=== PATIENT | female | born 1960 | race Caucasian/White ===

== ENCOUNTER 2021-04-24 11:27 | Outpatient (CLI) | payer MEDICAID ==
[~2021-04-24 11:27] MED LIST: ALBU8HFA PO; AMPH12.52 PO; ESTR1VAG VG; ESZO3TAB66 PO; LACT1CAP73 PO; LEVO50TA67 PO; LURA20TA PO; TRAZ-256 PO
== END 2021-04-24 23:59 | disposition home or self-care (01) ==
LOC: RAD 11:27
PROVIDERS: ATTEND Family Medicine
DX: R56.9 Unspecified convulsions (principal); R55 Syncope and collapse; Z86.69 Personal history of other diseases of the nervous system and sense organs
CPT/HCPCS: 95816

== ENCOUNTER 2024-10-10 14:07 | Day surgery (SDC) | payer MEDICAID ==
[2024-10-10] VITALS (10 sets, daily range): BP systolic 111–150; BP diastolic 72–94; PULSE 62–89; RESP 16; O2SAT 92–97
[~2024-10-10] VITALS: Ht 149.9 cm; Wt 51.8 kg
[~2024-10-10 14:07] MED LIST changes: -ESTR1VAG VG; +ESTR1VAG10 VG; -LURA20TA PO; +LURA20TA8 PO
[2024-10-10] MEDS ORDERED: nitroGLYCERIN 0.4mg SUBLingual tab SL PRN ×2 (14:35→16:50)
[2024-10-10] MEDS ORDERED: diphenhydrAMINE 25mg capsule PO PRN (14:35)
[2024-10-10] MEDS ORDERED: LORazepam 0.5 MG tablet PO PRN (14:35)
[2024-10-10] MEDS ORDERED: fentaNYL/PF 50MCG/1 ML 2ML syringe ONE (14:50)
[2024-10-10] MEDS ORDERED: midazolam 1 mg/ML 2ml injection ONE ×2 (14:50→15:49)
[2024-10-10] MEDS ORDERED: iohexol 350MG/ML 100ml bottle IV ONE (14:50)
[2024-10-10] MEDS ORDERED: LIDOcaine 1% 30ml preserv. free vial ONE (14:50)
[2024-10-10] MEDS ORDERED: BUDE10.7 INH (15:17)
[2024-10-10] MEDS ORDERED: OMEP20CA16 PO (15:17)
[2024-10-10] MEDS ORDERED: ESZO3TAB44 PO (15:17)
[2024-10-10] MEDS ORDERED: AMLO-507 (15:17)
[2024-10-10] MEDS ORDERED: LINA290C PO (15:17)
[2024-10-10] MEDS ORDERED: LIDO700A47 TOP (15:17)
[2024-10-10] MEDS ORDERED: [UNRECOGNIZED DRUG - OTHER] TOP (15:17)
[2024-10-10] MEDS ORDERED: NORT25CA PO (15:17)
[2024-10-10] MEDS ORDERED: FLUO10TA34 NAS (15:17)
[2024-10-10] MEDS ORDERED: METO10TA3 PO (15:17)
[2024-10-10] MEDS ORDERED: TOBR5DRO7 EACHEYE (15:17)
[2024-10-10 15:19] LABS: BASOPHILS % (AUTO) 0.8 % (0-1); EOSINOPHILS % (AUTO) 0.6 % (0-6); HEMATOCRIT 38.4 % (35.0-45.0); HEMOGLOBIN 12.7 g/dl (12.0-16.0); LYMPHOCYTES # (AUTO) 1.2 X10'3 (1.1-4.8); LYMPHOCYTES % (AUTO) 23.3 % (21-51); MEAN CORPUSCULAR HEMOGLOBIN 33.3 PG (27.0-31.0); MEAN CORPUSCULAR HGB CONC 33.2 g/dL (33.0-36.5); MEAN CORPUSCULAR VOLUME 100.5 FL (78-98); MEAN PLATELET VOLUME 8.5 FL (7.4-10.4); MONOCYTES # (AUTO) 0.4 X10'3 (0-0.9); MONOCYTES % (AUTO) 8.8 % (2-12); NEUTROPHILS # (AUTO) 3.3 X10'3 (1.8-7.7); NEUTROPHILS % (AUTO) 66.5 % (42-75); PLATELET COUNT 241 X10'3 (140-440); RED BLOOD COUNT 3.82 X10'6 (4.20-5.60); RED CELL DISTRIBUTION WIDTH 13.4 % (11.5-14.5)
[2024-10-10] MEDS ORDERED: POLY17PO20 PO (15:20)
[2024-10-10] MEDS ORDERED: TRAM50TA2 PO (15:20)
[2024-10-10 15:31] LABS: APTT 24 SECONDS (22-32); PROTHROMBIN TIME 10.1 SECONDS (9.0-12.0)
[2024-10-10 15:49] LABS: ALBUMIN 3.3 G/DL (3.4-5.0); ANION GAP 11 (8-16); BLOOD UREA NITROGEN 14 MG/DL (7-18); BUN/CREATININE RATIO 21.2 (10.0-20.0); CALCIUM 8.9 MG/DL (8.5-10.1); CHLORIDE 104 MMOL/L (99-107); CREATININE 0.66 MG/DL (0.40-0.90); GLUCOSE 90 MG/DL (70-104); POTASSIUM 3.8 MMOL/L (3.5-5.1); SODIUM 136 MMOL/L (135-145); eCRCL 60 ML/MIN; eGFR 90 ML/MIN
[2024-10-10] MEDS ORDERED: normal saline 1000ml 1,000 ML IV SCH (16:50)
[2024-10-10] MEDS ORDERED: OXAZEpam 15mg capsule PO PRN (16:50)
[2024-10-10] MEDS ORDERED: HYDROcodone/acetaminophen 5mg/325mg tablet PO PRN (16:50)
[2024-10-10] MEDS ORDERED: proCHLORperazine 10 MG/2 ml inj IV PRN (16:50)
[2024-10-10] MEDS ORDERED: ondansetron/PF 4mg/2ml inj IV PRN (16:50)
[2024-10-10] MEDS: HYDROmorphone 1 mg/ml syringe IV PRN (16:53)
[2024-10-10] MEDS: normal saline 1,000 ML IV SCH (16:55)
[2024-10-10] MEDS: HYDROcodone/acetaminophen 10/325mg tab PO PRN (17:23)
== END 2024-10-10 20:05 | disposition home or self-care (01) ==
LOC: SSTAY O 14:07
PROVIDERS: ATTEND Internal Medicine Cardiovascular Disease
DX: R94.39 Abnormal result of other cardiovascular function study (principal); I49.1 Atrial premature depolarization; Z88.0 Allergy status to penicillin; Z88.1 Allergy status to other antibiotic agents; Z88.2 Allergy status to sulfonamides
CPT/HCPCS: 36415; 71046; 80048; 85025; 85610; 85730; 93005; 93458; 99152; J1171; J1644; J2003; J2250; J3010; J7030; Q9967; 99153; A6258; C1760; C1769; C1894

== ENCOUNTER 2025-08-27 13:31 | Outpatient (CLI) | payer MEDICAID ==
[~2025-08-27 13:31] MED LIST changes: -ALBU8HFA PO; +AMLO-507; -AMPH12.52 PO; +BUDE10.7 INH; -ESTR1VAG10 VG; +ESZO3TAB44 PO; +FLUO10TA34 NAS; +LIDO700A47 TOP; +LINA290C PO; -LURA20TA8 PO; +METO10TA3 PO; +NORT25CA PO; +OMEP20CA16 PO; +POLY17PO20 PO; +TOBR5DRO7 EACHEYE; +TRAM50TA2 PO; +[UNRECOGNIZED DRUG - OTHER] TOP
--- NOTE | 2025-08-27 15:15 | RADIOLOGY REPORT ---
PROCEDURE: MR MRI C SPINE Indication: CERVICAL RADICULOPATHY, FIBROMYALGIA COMPARISON: None TECHNIQUE: Multiplanar multisequence images of the the cervical spine are obtained. FINDINGS: The cervical vertebral body heights are maintained. There is moderate multilevel disc space narrowing with desiccation. No abnormal marrow edema. No prevertebral edema. Atlantooccipital, atlantoaxial articulations intact. C2-3: Small disc osteophyte complex. No spinal canal stenosis. Mild left neural foraminal stenosis. C3-4: Small disc osteophyte complex thecal sac measures 9 mm AP. Narrowing of the ventral and dorsal CSF spaces. Mild spinal canal stenosis. [id number] left and mild right neural foraminal stenosis. C4-5: Disc osteophyte complex narrowing the ventral and dorsal CSF spaces. Thecal sac measures 7 mm AP. Moderate spinal canal stenosis. Moderate bilateral neural foraminal stenosis. C5-6: Disc osteophyte complex narrowing the ventral and dorsal CSF spaces. Thecal sac measures 6 mm AP. Moderate spinal canal stenosis. Moderate to severe left and moderate right neural foraminal stenosis. C6-7: Disc osteophyte complex narrowing the ventral and dorsal CSF spaces. Thecal sac measures 7 mm AP. Moderate spinal canal stenosis. Moderate to severe bilateral neural foraminal stenosis. C7-T1: No spinal canal stenosis. No significant neural foraminal stenosis. IMPRESSION: Moderate cervical degenerative disc disease. Moderate spinal canal stenosis C4-5 , C5-6 and C6-7. Multilevel neural foraminal stenosis as described most pronounced at C4-5, C5-6 and C6-7
== END 2025-08-27 23:59 | disposition home or self-care (01) ==
LOC: MRI02 13:31
PROVIDERS: ATTEND Anesthesiology Pain Medicine
DX: M50.30 Other cervical disc degeneration, unspecified cervical region (principal); M79.18 Myalgia, other site; M47.812 Spondylosis without myelopathy or radiculopathy, cervical region; M54.81 Occipital neuralgia; M54.12 Radiculopathy, cervical region; Z86.73 Personal history of transient ischemic attack (TIA), and cerebral infarction without residual deficits; M25.78 Osteophyte, vertebrae; M48.02 Spinal stenosis, cervical region
CPT/HCPCS: 72141